=== PATIENT | male | born 1945 | race Caucasian/White ===

== ENCOUNTER 2020-06-24 17:52 | Inpatient (IN) | payer MEDICARE, OTHER ==
[~2020-06-24] VITALS: Ht 182.9 cm; Wt 110.0 kg
--- NOTE | 2020-06-24 17:30 | NUR ---
ADMISSION NOTE-PT ARRIVES VIA PRIVATE VEHICLE DIRECT ADMISSION PER DR DELGADO. PT AMBULATES TO DOORS WITH ROLLING WALKER, STAFF UTILIZES WHEELCHAIR TO MOVE TO ROOM. NO OXYGEN OR OTHER EQUIPMENT REQUIRED AT THIS TIME. VSS, ADMISSION QUESTIONS COVERED WITH PATIENT. MEAL TRAY GIVEN TO PATIENT AT THIS TIME.
[~2020-06-24 17:52] MED LIST: ACET500T33 PO; AMMO385C5 TP; CARV3.1230 PO; CHOL10003 PO; FEBU80TA2 PO; FEXO180T16 PO; FLUO15OI TP; FLUT16SP21 NS; FLUT9.9S NS; FURO40TA4 PO; GABA300S PO; HYDR-2679 PO; HYDR-2765 PO; INSU100I13 SQ; INSU100I17 SQ; LEVO100T PO; LEVO500P IV; MAG DELAY64 MG PO; MECL-75 PO; PANT40TA6 PO; PRED2.5T PO; SPIR25TA5 PO; TAMS0.4C2 PO; VANC1.5P10 IV; VANC1.7511 IV
[2020-06-24] MEDS ORDERED: INSU100I13 SQ (18:07)
[2020-06-24] MEDS ORDERED: INSU100V31 SQ (18:07)
[2020-06-24] MEDS ORDERED: FLUO20TA11 PO (18:07)
[2020-06-24] MEDS ORDERED: PRED20TA PO (18:08)
[2020-06-24] MEDS ORDERED: IV 1/2 NORMAL SALINE 1,000 ML IV PRN (18:15)
[2020-06-24 19:39] LABS: BASO % 0 % (0-3); EOS % 0 % (0-3); HEMATOCRIT 37.8 % (39.0-53.0); HEMOGLOBIN 12.7 g/dL (13.0-17.5); LYMPH % 8 % (24-48); MEAN CORPUSCULAR HEMOGLOBIN 27 pg (25-35); MEAN CORPUSCULAR HGB CONC 34 g/dL (31-37); MEAN CORPUSCULAR VOLUME 82 fL (79-100); MONO # 0.3 x10^3/uL (0.0-1.1); MONO % 3 % (0-9); NEUT # 10.7 x10^3uL (1.8-7.7); NEUT % 89 % (31-73); PLATELET COUNT 304 x10^3/uL (140-400); RED BLOOD COUNT 4.65 x10^6/uL (4.30-5.70); RED CELL DISTRIBUTION WIDTH 16.4 % (11.5-14.5)
--- NOTE | 2020-06-24 19:42 | RAD ---
Two-view chest dated 06/24/2020. Comparison 04/27/2016. Clinical data indication: Dyspnea. FINDINGS: PA and lateral views obtained. Heart and mediastinal contours are stable. There are a few increased l inear markings at both lung bases likely scar or atelectasis, similar to prior study. No consolidatio n or pleural effusion. No pneumothorax. IMPRESSION: 1. No acute radiographic abnormality. Electronically signed by: Torsten Wallace MD (06/24/2020 7:40 PM) [id number]
[2020-06-24 19:57] LABS: ALBUMIN 3.5 g/dL (3.4-5.0); ALBUMIN/GLOBULIN RATIO 1.1 (1.0-1.7); CALCIUM 8.4 mg/dL (8.5-10.1); CREATININE 1.8 mg/dL (0.7-1.3); GFR 37.1; TOTAL BILIRUBIN 0.5 mg/dL (0.2-1.0); TOTAL PROTEIN 6.8 g/dL (6.4-8.2)
[2020-06-24 19:58] LABS: MAGNESIUM 1.6 mg/dL (1.8-2.4)
[2020-06-24 20:00] VITALS: BP 158/91
[2020-06-24 20:03] LABS: POTASSIUM 5.4 mmol/L (3.5-5.1)
[2020-06-24 20:12] LABS: % BANDS 1 % (0-9); % BASOS 1 % (0-3); % LYMPHS 12 % (24-48); % MONOS 1 % (0-10); % SEGS 85 % (35-66)
[2020-06-24 20:13] LABS: PLT ESTIMATE ADEQUATE (ADEQUATE)
[2020-06-24] MEDS ORDERED: DEXTROSE 50% 25 GM / 50ML DISP.SYRIN. IV PRN (20:45)
[2020-06-24] MEDS ORDERED: PIP/TAZO PER PHARMACY MC PRN (21:00)
[2020-06-24] MEDS ORDERED: LOPERAMIDE 2 MG CAPSULE PO PRN (21:00)
[2020-06-24] MEDS ORDERED: ACETAMINOPHEN 500 MG TABLET PO PRN (21:00)
[2020-06-24] MEDS ORDERED: MORPHINE SULFATE 2 MG/ML DISP.SYRIN. IV PRN (21:00)
[2020-06-24] MEDS ORDERED: INSULIN LISPRO 300 UNITS/3 ML VIAL. SQ SCH (21:00)
[2020-06-24] MEDS ORDERED: ZOLPIDEM 5 MG TABLET. PO PRN (21:00)
[2020-06-24] MEDS ORDERED: IV NORMAL SALINE 1,000ML 1,000 ML IV ONE (21:00)
[2020-06-24] MEDS ORDERED: levoFLOXacin PER PHARMACY 1 EACH. MC PRN (21:30)
[2020-06-24] MEDS: INSULIN GLARGINE SYRINGE. SQ SCH (21:50)
[2020-06-24] MEDS: IV NORMAL SALINE 1,000ML 1,000 ML IV SCH (21:51)
[2020-06-24 22:36] LABS: BACTERIA,URINE FEW /HPF (0-FEW); BILIRUBIN,URINE NEG (NEG); CLARITY,URINE CLEAR; COLOR,URINE YELLOW; GLUCOSE,URINE >=1000 mg/dL (NEG); NITRITE,URINE NEG (NEG); RBC,URINE OCC /HPF (0-2); SQUAMOUS EPITHELIAL CELL,UR OCC /LPF; UROBILINOGEN,URINE 0.2 mg/dL (0.2 mg/dL)
[2020-06-24 23:24] LABS: CREATININE 1.7 mg/dL (0.7-1.3); GFR 39.6; POTASSIUM 4.8 mmol/L (3.5-5.1)
[2020-06-24 23:30] VITALS: BP 166/85
[2020-06-25] MEDS: PIPERACILLIN/TAZOBACTAM 3.375 GM in IV NORMAL SALINE 50ML 50 ML IV SCH ×4 (00:14→17:44)
--- NOTE | 2020-06-25 00:15 | NUR ---
Pt has implanted glucose monitor in left upper abdomen. Glucose measurements checked between finger stick measurements for verification. Pt's glucose monitor does not register above 400 mg/dL; it states "above 400," as confirmed by fingerstick measurements and blood draws. Implanted monitor measures 371 mg/dL at 0015. Will continue to monitor. Pt resting without complaint.
[2020-06-25] MEDS: IV NORMAL SALINE 1,000ML 1,000 ML IV SCH ×5 (05:00→22:14)
[2020-06-25] MEDS: LEVOTHYROXINE 100 MCG TABLET PO SCH (06:19)
[2020-06-25 06:34] VITALS: BP 162/77
[2020-06-25] MEDS ORDERED: INSULIN LISPRO 300 UNITS/3 ML VIAL. SQ ONE (07:00)
[2020-06-25] MEDS: PANTOPRAZOLE 40 MG TABLET. PO SCH (08:17)
[2020-06-25] MEDS: FEBUXOSTAT 40 MG TABLET PO SCH (08:18)
[2020-06-25] MEDS: FLUoxetine HCL 20 MG CAPSULE PO SCH (08:18)
[2020-06-25] MEDS: predniSONE 20 MG TABLET PO SCH (08:18)
[2020-06-25] MEDS: INSULIN LISPRO 300 UNITS/3 ML VIAL. SQ SCH ×3 (08:22→17:48)
[2020-06-25] MEDS ORDERED: predniSONE 20 MG TABLET PO SCH (09:00)
[2020-06-25 09:42] LABS: POTASSIUM 4.6 mmol/L (3.5-5.1)
[2020-06-25 10:44] LABS: CALCIUM 7.9 mg/dL (8.5-10.1); CREATININE 1.5 mg/dL (0.7-1.3); GFR 45.7
--- NOTE | 2020-06-25 13:41 | PN ---
DATE: SUBJECTIVE: A 74-year-old male in with sepsis and severe hyperglycemia. The patient had generalized weakness, dehydration, elevated lactic acids of over 4. In any case, the patient placed on IV antibiotics, given IV fluids. He is making fairly good progress overall and seems to be feeling a little bit stronger. OBJECTIVE: VITAL SIGNS: Blood pressure 162/70, respiratory rate 20, pulse 70, afebrile. The patient is 99% on room air. GENERAL: The patient otherwise head was atraumatic, normocephalic. LUNGS: Diminished, but clear. CARDIOVASCULAR: Regular sinus rhythm. ABDOMEN: Soft, nontender. EXTREMITIES: No clubbing, cyanosis, edema. NEUROLOGIC: Intact. LABORATORY DATA: Show improvement of his creatinine and BUN as an indication of his dehydration. BUN down to 44 and 1.5, GFR up to 45. Blood sugar down from about 500 down to 123. IMPRESSION: Sepsis, severe hyperglycemia, hyperkalemia, essential hypertension. PLAN: Continue present drug regimen. Get an angiogram and make further evaluation on him as indicated above. ADRIEN DELGADO MD DR: ADINA/claudy JOB#: [id number] / [id number]
[2020-06-25 14:30] VITALS: BP 126/67
[2020-06-25] MEDS ORDERED: IOHEXOL 350 MG/ML 100 ML VIAL. IV ONE (14:45)
[2020-06-25] MEDS ORDERED: CONTRAST GIVEN. MC PRN (14:45)
[2020-06-25 20:00] VITALS: BP 146/86
--- NOTE | 2020-06-25 20:30 | NUR ---
Nursing Note: Pt implanted glucometer readinmg/dL.
[2020-06-25] MEDS: LACTOBACILLUS RHAMNOSUS GG 1 CAPSULE. PO SCH (21:00)
[2020-06-25] MEDS: INSULIN GLARGINE SYRINGE. SQ SCH (22:14)
--- NOTE | 2020-06-26 04:11 | RAD ---
PQRS Compliance Statement: One or more of the following individualized dose reduction techniques were utilized for this examinat ion: 1. Automated exposure control 2. Adjustment of the mA and/or kV according to patient size 3. Use of iterative reconstruction technique CT CHEST WITH CONTRAST, PULMONARY ANGIOGRAM History: Reason: fatigue, shortness of breath Comparison: CTA chest, September 21, 2014. Technique: Helical CT of the chest was performed after the administration of 60 cc of Omnipaque 350 intravenous contrast according to PE protocol. Axial and coronal reconstructions were obtained. 3-D MIP images were constructed to better evaluate the pulmonary arteries. Findings: Pulmonary arteries are adequately opacified. There is no evidence of pulmonary embolism. There is no thoracic aortic dissection. There is calcific aortic valve stenosis. There is coronary ar suzette disease. There is minimal right gynecomastia. There is no axillary adenopathy. There is no media stinal or hilar adenopathy. There are small calcified right hilar lymph nodes. Great vessels are norm al caliber. Cardiac size is normal, no pericardial effusion. There is no pleural effusion. Incidental azygos fissure. The central airways are patent. Tiny nodule along the minor fissure is stable, therefore benign. Calcified granulomas right lower lobe. Mild atel ectasis posterior right lower lobe. There are calcified granulomas in the liver and the spleen. There is an incompletely imaged 6.[address] of the right kidney that does not require follow-up. Cholecystectomy. Thoracic spine alignment is maintained. IMPRESSION: There is no pulmonary embolus. Electronically signed by: Claude Bullock MD (06/26/2020 4:09 AM) [facility]
[2020-06-26] MEDS: IV NORMAL SALINE 1,000ML 1,000 ML IV SCH ×3 (04:19→12:27)
[2020-06-26 05:37] LABS: HEMOGLOBIN A1C 6.3 % (4.8-5.6)
[2020-06-26] MEDS: LEVOTHYROXINE 100 MCG TABLET PO SCH (06:24)
[2020-06-26] MEDS: PIPERACILLIN/TAZOBACTAM 3.375 GM in IV NORMAL SALINE 50ML 50 ML IV SCH ×3 (06:24→12:23)
[2020-06-26 07:44] VITALS: BP 171/73
[2020-06-26] MEDS: PANTOPRAZOLE 40 MG TABLET. PO SCH (09:27)
[2020-06-26] MEDS: FEBUXOSTAT 40 MG TABLET PO SCH (09:27)
[2020-06-26] MEDS: FLUoxetine HCL 20 MG CAPSULE PO SCH (09:27)
[2020-06-26] MEDS: LACTOBACILLUS RHAMNOSUS GG 1 CAPSULE. PO SCH (09:27)
[2020-06-26] MEDS: predniSONE 20 MG TABLET PO SCH (09:27)
[2020-06-26] MEDS: INSULIN LISPRO 300 UNITS/3 ML VIAL. SQ SCH ×2 (09:31→12:23)
[2020-06-26 11:11] VITALS: BP 128/76
[2020-06-26] MEDS ORDERED: PRED20TA PO (11:48)
--- NOTE | 2020-06-26 14:13 | NUR ---
EVETTE IS DISCHARGED HOME WITH SELF CARE. PATIENT IS STABLE AT TIME OF DISCHARGE. PATIENTS IV IS REMOVED. PT IS GIVEN ALL DISCHARGE AND FOLLOW UP INSTRUCTIONS. PT AMBULATED OFF OF UNIT.
== END 2020-06-26 14:13 | disposition home or self-care (01) | DRG 871 ==
LOC: 1 SOUTH 17:52
PROVIDERS: ADMIT Family Medicine; ATTEND Family Medicine
DX: A41.9 Sepsis, unspecified organism (principal); N17.0 Acute kidney failure with tubular necrosis; E86.0 Dehydration; E87.5 Hyperkalemia; Z79.899 Other long term (current) drug therapy; E11.22 Type 2 diabetes mellitus with diabetic chronic kidney disease; E11.65 Type 2 diabetes mellitus with hyperglycemia; I12.9 Hypertensive chronic kidney disease with stage 1 through stage 4 chronic kidney disease, or unspecified chronic kidney disease; N18.30 Chronic kidney disease, stage 3 unspecified; E78.5 Hyperlipidemia, unspecified; E03.9 Hypothyroidism, unspecified; Z90.89 Acquired absence of other organs
CPT/HCPCS: 36415; 71046; 71275; 80048; 80053; 81001; 82550; 82607; 82947; 83036; 83605; 83735; 84443; 84484; 84550; 85007; 85025; 85379; 87040; 87086; J1815; J1956; J2543; J7512; Q9967; J7030